=== PATIENT | female | born 1980 | race Caucasian/White ===

== ENCOUNTER → 2017-01-23 | Outpatient (CLI) | payer OTHER ==
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
== END ==
LOC: XR SRH 14:12
DX: S69.90XA Unspecified injury of unspecified wrist, hand and finger(s), initial encounter (principal)